=== PATIENT | female | born 1965 | race Caucasian/White ===

== ENCOUNTER 2019-05-06 11:51 | Inpatient (IN) | payer OTHER ==
[2019-05-06 13:03] LABS: ADD MAN DIFF? NO
[2019-05-06 13:04] LABS: BASOPHIL # 0.1 10^3/ul (0.0-0.1); BASOPHILS % 0.4 % (0.0-2.0); EOSINOPHILS # 0.3 10^3/ul (0.0-0.5); EOSINOPHILS % 2.2 % (0.0-7.0); HEMATOCRIT 33.3 % (37.0-47.0); HEMOGLOBIN 11.2 g/dl (12.0-16.0); LYMPHOCYTES # 1.7 10^3/ul (0.8-2.9); LYMPHOCYTES % 11.3 % (15.0-51.0); MEAN CORPUSCULAR HEMOGLOBIN 27.9 pg (29.0-33.0); MEAN CORPUSCULAR HGB CONC 33.6 g/dl (32.0-37.0); MEAN CORPUSCULAR VOLUME 82.8 fl (82.0-101.0); MEAN PLATELET VOLUME 10.2 fl (7.4-10.4); MONOCYTE # 0.6 10^3/ul (0.3-0.9); MONOCYTES % 3.9 % (0.0-11.0); NEUTROPHIL # 12.1 10^3/ul (1.6-7.5); NEUTROPHILS % 81.8 % (39.0-77.0); PLATELET COUNT 260 10^3/UL (140-415); RED BLOOD COUNT 4.02 10^6/ul (4.20-5.40); RED CELL DISTRIBUTION WIDTH 13.9 % (11.5-14.5)
[2019-05-06 13:04] LABS: WHITE BLOOD COUNT 14.8 10^3/ul (4.8-10.8)
[2019-05-06 13:24] LABS: ADD UMIC YES; UR ASCORBIC ACID NEGATIVE (NEGATIVE); UR BACTERIA FEW /HPF (NONE SEEN); UR BILIRUBIN (Dip) NEGATIVE (NEGATIVE); UR BLOOD (Dip) 2+ mg/dL (NEGATIVE); UR CLARITY CLOUDY (CLEAR); UR COLOR YELLOW (YELLOW); UR GLUCOSE (Dip) 1+ mg/dL (NEGATIVE); UR KETONES (Dip) NEGATIVE (NEGATIVE); UR LEUKOCYTE ESTERASE (Dip) 2+ Leu/ul (NEGATIVE); UR NITRITE (Dip) NEGATIVE (NEGATIVE); UR RBC 15 /HPF (0-5); UR SPECIFIC GRAVITY (Dip) 1.009 (1.003-1.030); UR SQUAMOUS EPITHELIAL CELL MODERATE /HPF (FEW); UR TOTAL PROTEIN (Dip) 2+ mg/dl (NEGATIVE); UR UROBILINOGEN (Dip) NEGATIVE (NEGATIVE); UR WBC 9 /HPF (0-5)
[2019-05-06 13:27] LABS: ALANINE AMINOTRANSFERASE 12 IU/L (13-69); ALBUMIN 4.3 g/dl (3.3-4.9); ALKALINE PHOSPHATASE 114 IU/L (42-121); ANION GAP 19 (5-13); ASPARTATE AMINO TRANSFERASE 9 IU/L (15-46); BILIRUBIN,INDIRECT 0.4 mg/dl (0-1.1); BILIRUBIN,TOTAL 0.4 mg/dl (0.2-1.3); BLOOD UREA NITROGEN 71 mg/dl (7-20); CALCIUM 7.4 mg/dl (8.4-10.2); CARBON DIOXIDE 21 mmol/L (21-31); CHLORIDE 102 mmol/L (97-110); Estimated GFR 7 mL/min (>60); GLUCOSE 132 mg/dl (70-220); LIPASE 289 U/L (23-300); POTASSIUM 3.2 mmol/L (3.5-5.1); SODIUM 142 mmol/L (135-144); TOTAL PROTEIN 8.2 g/dl (6.1-8.1)
[2019-05-06] MEDS ORDERED: ONDANSETRON 4 MG INJ IV ×2 (15:00→18:00)
[2019-05-06] MEDS ORDERED: ACETAMINOPHEN 325 MG TAB PO ×2 (15:00→18:00)
[2019-05-06 15:28] LABS: HEMOGLOBIN A1C 6.6 % (0-5.9)
[2019-05-06] MEDS ORDERED: INSULIN ASPART [NOVOLOG] 3 ML PEN SC (17:55)
[2019-05-06] MEDS ORDERED: ACETAMINOPHEN 650 MG SUPP PR (18:00)
[2019-05-06] MEDS ORDERED: BISACODYL 10 MG SUPP PR (18:00)
[2019-05-06] MEDS ORDERED: NACL 0.9% 3 ML SYG IV (18:00)
[2019-05-06] MEDS ORDERED: HYDROCODONE/APAP (5/325) TAB PO (18:00)
[2019-05-06] MEDS ORDERED: morphine 2 MG INJ IV (18:00)
[2019-05-06] MEDS ORDERED: BISACODYL (EC) 5 MG TAB PO (18:00)
[2019-05-06] MEDS ORDERED: DOCUSATE SODIUM 100 MG CAP PO (18:00)
[2019-05-06 18:12] LABS: INR 0.89; PROTIME 12.1 Sec (11.9-14.9); PT RATIO 0.9
[2019-05-06] MEDS ORDERED: hydrALAzine 20 MG INJ IV (18:30)
[2019-05-06] MEDS ORDERED: DEXTROSE 50% 50 ML SYRINGE IV ×2 (19:30)
[2019-05-06] MEDS ORDERED: GLUCOSE GEL 15 GRAM TUBE BUCCAL (19:30)
[2019-05-06] MEDS ORDERED: GLUCAGON 1 MG INJ IM (19:30)
[2019-05-06] MEDS ORDERED: GLUCOSE GEL 15 GRAM TUBE PO ×2 (19:30)
[2019-05-06] MEDS: LABETALOL 100 MG TAB PO (20:19)
[2019-05-06] MEDS: FAMOTIDINE 20 MG TAB PO (20:19)
[2019-05-06] MEDS: ATORVASTATIN 10 MG TAB PO (20:19)
[2019-05-06] MEDS: SOD CHLORIDE 0.9% 1,000 ML IV (20:20)
[2019-05-06] MEDS: DOCUSATE SODIUM 100 MG CAP PO (20:23)
[2019-05-06] MEDS: INSULIN ASPART [NOVOLOG] 3 ML PEN SC (21:37)
[2019-05-07] MEDS: ACCU-CHEK XX (01:53)
[2019-05-07] MEDS: SOD CHLORIDE 0.9% 1,000 ML IV ×3 (03:42→14:22)
[2019-05-07 05:44] LABS: HAAIG REFLEX REFLEX FILED
[2019-05-07 05:50] LABS: ADD MAN DIFF? NO
[2019-05-07 05:57] LABS: WHITE BLOOD COUNT 14.7 10^3/ul (4.8-10.8)
[2019-05-07 05:57] LABS: BASOPHILS % 0.3 % (0.0-2.0); EOSINOPHILS # 0.4 10^3/ul (0.0-0.5); EOSINOPHILS % 2.5 % (0.0-7.0); HEMATOCRIT 30.5 % (37.0-47.0); HEMOGLOBIN 10.2 g/dl (12.0-16.0); LYMPHOCYTES # 2.2 10^3/ul (0.8-2.9); LYMPHOCYTES % 14.7 % (15.0-51.0); MEAN CORPUSCULAR HGB CONC 33.4 g/dl (32.0-37.0); MEAN CORPUSCULAR VOLUME 83.8 fl (82.0-101.0); MEAN PLATELET VOLUME 10.6 fl (7.4-10.4); MONOCYTE # 0.7 10^3/ul (0.3-0.9); NEUTROPHIL # 11.3 10^3/ul (1.6-7.5); PLATELET COUNT 235 10^3/UL (140-415); RED BLOOD COUNT 3.64 10^6/ul (4.20-5.40); RED CELL DISTRIBUTION WIDTH 13.9 % (11.5-14.5)
[2019-05-07 06:11] LABS: ALANINE AMINOTRANSFERASE 14 IU/L (13-69); ALBUMIN 3.8 g/dl (3.3-4.9); ALBUMIN/GLOBULIN RATIO 1.15; ALKALINE PHOSPHATASE 98 IU/L (42-121); ANION GAP 17 (5-13); ASPARTATE AMINO TRANSFERASE < 8 IU/L (15-46); BILIRUBIN,INDIRECT 0.4 mg/dl (0-1.1); BILIRUBIN,TOTAL 0.4 mg/dl (0.2-1.3); BLOOD UREA NITROGEN 72 mg/dl (7-20); CALCIUM 7.1 mg/dl (8.4-10.2); CARBON DIOXIDE 20 mmol/L (21-31); CHLORIDE 103 mmol/L (97-110); CREATININE 5.46 mg/dl (0.44-1.00); Estimated GFR 8 mL/min (>60); GLUCOSE 149 mg/dl (70-220); POTASSIUM 3.3 mmol/L (3.5-5.1); SODIUM 140 mmol/L (135-144); TOTAL PROTEIN 7.1 g/dl (6.1-8.1)
[2019-05-07 07:30] LABS: IRON 61 ug/dl (35-150)
[2019-05-07 07:40] LABS: % IRON SATURATION 23 % SAT (22-52); TOTAL IRON BINDING CAPACITY 265 ug/dl (241-421)
[2019-05-07 08:10] LABS: HEPATITIS B SURFACE ANTIGEN NEGATIVE (NEGATIVE)
[2019-05-07 08:18] LABS: HEMOGLOBIN A1C 6.5 % (0-5.9)
[2019-05-07 08:27] LABS: HEPATITIS B CORE ANTIBODY NEGATIVE (NEGATIVE); HEPATITIS C VIRAL ANTIBODY NEGATIVE (NEGATIVE)
[2019-05-07] MEDS: LABETALOL 100 MG TAB PO ×2 (08:31→20:43)
[2019-05-07] MEDS: MINOXIDIL 2.5 MG TAB PO (08:31)
[2019-05-07] MEDS: INSULIN ASPART [NOVOLOG] 3 ML PEN SC ×5 (08:33→21:00)
[2019-05-07] MEDS: DOCUSATE SODIUM 100 MG CAP PO (08:34)
[2019-05-07] MEDS: POTASSIUM CHLORIDE (SR) 20 MEQ TAB PO (14:19)
[2019-05-07] MEDS: MULTIVIT/CA CARB/B CMPLX/FA TAB PO (14:20)
[2019-05-07] MEDS: CEFTRIAXONE 1 GM/50 ML (PMX) 50 ML IVPB (14:20)
[2019-05-07 16:36] LABS: COMPLEMENT C3 95 mg/dl (88-165); COMPLEMENT C4 31 mg/dl (14-44)
[2019-05-07 17:07] LABS: HIV 1&2 ANTIBODY NEGATIVE (NEGATIVE)
[2019-05-07] MEDS: FAMOTIDINE 20 MG TAB PO (18:00)
[2019-05-07] MEDS: ATORVASTATIN 10 MG TAB PO (20:43)
[2019-05-07] MEDS: ENOXAPARIN 30 MG/0.3 ML SYG SC (20:45)
[2019-05-08] MEDS: ACCU-CHEK XX (02:40)
[2019-05-08 03:54] LABS: PROTEIN/CREAT RATIO 2.23 RATIO
[2019-05-08 05:08] LABS: ADD MAN DIFF? NO
[2019-05-08 05:11] LABS: BASOPHILS % 0.2 % (0.0-2.0); EOSINOPHILS # 0.3 10^3/ul (0.0-0.5); EOSINOPHILS % 2.2 % (0.0-7.0); HEMATOCRIT 28.9 % (37.0-47.0); HEMOGLOBIN 9.4 g/dl (12.0-16.0); LYMPHOCYTES % 15.5 % (15.0-51.0); MEAN CORPUSCULAR HEMOGLOBIN 27.6 pg (29.0-33.0); MEAN CORPUSCULAR HGB CONC 32.5 g/dl (32.0-37.0); MEAN CORPUSCULAR VOLUME 84.8 fl (82.0-101.0); MEAN PLATELET VOLUME 10.2 fl (7.4-10.4); MONOCYTE # 0.6 10^3/ul (0.3-0.9); MONOCYTES % 4.8 % (0.0-11.0); NEUTROPHIL # 9.9 10^3/ul (1.6-7.5); NEUTROPHILS % 76.8 % (39.0-77.0); PLATELET COUNT 228 10^3/UL (140-415); RED BLOOD COUNT 3.41 10^6/ul (4.20-5.40); RED CELL DISTRIBUTION WIDTH 13.7 % (11.5-14.5)
[2019-05-08 05:11] LABS: WHITE BLOOD COUNT 12.9 10^3/ul (4.8-10.8)
[2019-05-08 05:42] LABS: ANION GAP 15 (5-13); BLOOD UREA NITROGEN 77 mg/dl (7-20); CALCIUM 6.8 mg/dl (8.4-10.2); CARBON DIOXIDE 21 mmol/L (21-31); CHLORIDE 106 mmol/L (97-110); CREATININE 5.49 mg/dl (0.44-1.00); Estimated GFR 8 mL/min (>60); GLUCOSE 149 mg/dl (70-220); POTASSIUM 3.6 mmol/L (3.5-5.1); SODIUM 142 mmol/L (135-144)
[2019-05-08] MEDS: DOCUSATE SODIUM 100 MG CAP PO (08:36)
[2019-05-08] MEDS: MINOXIDIL 2.5 MG TAB PO (08:37)
[2019-05-08] MEDS: LABETALOL 100 MG TAB PO ×2 (08:37→20:49)
[2019-05-08] MEDS: MULTIVIT/CA CARB/B CMPLX/FA TAB PO (08:39)
[2019-05-08] MEDS: INSULIN ASPART [NOVOLOG] 3 ML PEN SC ×4 (08:41→20:51)
[2019-05-08] MEDS: SOD CHLORIDE 0.9% 1,000 ML IV (10:02)
[2019-05-08] MEDS: AMLODIPINE 10 MG TAB PO (14:43)
[2019-05-08] MEDS: CEFTRIAXONE 1 GM/50 ML (PMX) 50 ML IVPB (14:43)
[2019-05-08] MEDS: SOD CHLORIDE 0.45% 1,000 ML IV (14:43)
[2019-05-08] MEDS: FAMOTIDINE 20 MG TAB PO (17:39)
[2019-05-08] MEDS: CALCIUM ACETATE 667 MG CAP PO (17:39)
[2019-05-08 19:36] LABS: RAPID PLASMA REAGIN NONREACTIVE (NR)
[2019-05-08] MEDS: ATORVASTATIN 10 MG TAB PO (20:49)
[2019-05-08] MEDS: HEPARIN 5,000 UNIT/1 ML VIAL SC (20:51)
[2019-05-09] MEDS: ACCU-CHEK XX (02:11)
[2019-05-09 05:29] LABS: ADD MAN DIFF? NO
[2019-05-09 05:32] LABS: BASOPHILS % 0.3 % (0.0-2.0); EOSINOPHILS # 0.4 10^3/ul (0.0-0.5); EOSINOPHILS % 2.9 % (0.0-7.0); HEMATOCRIT 28.5 % (37.0-47.0); HEMOGLOBIN 9.6 g/dl (12.0-16.0); LYMPHOCYTES # 1.9 10^3/ul (0.8-2.9); LYMPHOCYTES % 15.3 % (15.0-51.0); MEAN CORPUSCULAR HEMOGLOBIN 28.2 pg (29.0-33.0); MEAN CORPUSCULAR HGB CONC 33.7 g/dl (32.0-37.0); MEAN CORPUSCULAR VOLUME 83.8 fl (82.0-101.0); MEAN PLATELET VOLUME 10.6 fl (7.4-10.4); MONOCYTE # 0.6 10^3/ul (0.3-0.9); MONOCYTES % 4.8 % (0.0-11.0); NEUTROPHIL # 9.2 10^3/ul (1.6-7.5); PLATELET COUNT 246 10^3/UL (140-415); RED CELL DISTRIBUTION WIDTH 13.6 % (11.5-14.5)
[2019-05-09 05:32] LABS: WHITE BLOOD COUNT 12.1 10^3/ul (4.8-10.8)
[2019-05-09 05:59] LABS: MAGNESIUM 2.4 mg/dl (1.7-2.5)
[2019-05-09 05:59] LABS: PHOSPHORUS 8.3 mg/dl (2.5-4.9)
[2019-05-09 06:01] LABS: ANION GAP 15 (5-13); BLOOD UREA NITROGEN 74 mg/dl (7-20); CALCIUM 7.2 mg/dl (8.4-10.2); CARBON DIOXIDE 20 mmol/L (21-31); CHLORIDE 105 mmol/L (97-110); CREATININE 5.84 mg/dl (0.44-1.00); Estimated GFR 8 mL/min (>60); GLUCOSE 151 mg/dl (70-220); SODIUM 140 mmol/L (135-144)
[2019-05-09] MEDS: AMLODIPINE 10 MG TAB PO (08:51)
[2019-05-09] MEDS: DOCUSATE SODIUM 100 MG CAP PO (08:51)
[2019-05-09] MEDS: LABETALOL 100 MG TAB PO (08:51)
[2019-05-09] MEDS: CALCIUM ACETATE 667 MG CAP PO ×3 (08:52→17:40)
[2019-05-09] MEDS: MULTIVIT/CA CARB/B CMPLX/FA TAB PO (08:52)
[2019-05-09] MEDS: INSULIN ASPART [NOVOLOG] 3 ML PEN SC ×4 (08:53→20:36)
[2019-05-09] MEDS: HEPARIN 5,000 UNIT/1 ML VIAL SC ×2 (08:54→20:41)
[2019-05-09] MEDS ORDERED: ENOXAPARIN 30 MG/0.3 ML SYG SC (09:00)
[2019-05-09] MEDS: POTASSIUM CHLORIDE (SR) 10 MEQ TAB PO (10:53)
[2019-05-09 11:07] LABS: PARATHYROID HORMONE INTACT 333.8 pg/ml (7.5-53.5)
[2019-05-09] MEDS: CALCITRIOL 0.25 MCG CAP PO (12:40)
[2019-05-09] MEDS: CEFTRIAXONE 1 GM/50 ML (PMX) 50 ML IVPB (13:38)
[2019-05-09 13:42] LABS: ANCA SCREEN NEGATIVE (NEGATIVE)
[2019-05-09] MEDS ORDERED: FUROSEMIDE 20 MG TAB PO (14:00)
[2019-05-09] MEDS: POTASSIUM CHLORIDE (SR) 20 MEQ TAB PO (14:17)
[2019-05-09] MEDS: FUROSEMIDE 20 MG TAB PO (14:17)
[2019-05-09 16:50] LABS: MYELOPEROXIDASE ANTIBODY <1.0 AI; PROTEINASE-3 ANTIBODY <1.0 AI
[2019-05-09] MEDS: FAMOTIDINE 20 MG TAB PO (17:40)
[2019-05-09 20:02] LABS: ANA SCREEN POSITIVE (NEGATIVE)
[2019-05-09] MEDS: ATORVASTATIN 10 MG TAB PO (20:38)
[2019-05-09 21:36] LABS: ANA PATTERN HOMOGENEOUS
[2019-05-10] MEDS: ACCU-CHEK XX (01:31)
[2019-05-10 05:00] LABS: ADD MAN DIFF? NO
[2019-05-10 05:04] LABS: BASOPHILS % 0.3 % (0.0-2.0); EOSINOPHILS # 0.3 10^3/ul (0.0-0.5); EOSINOPHILS % 2.6 % (0.0-7.0); HEMATOCRIT 27.9 % (37.0-47.0); HEMOGLOBIN 9.4 g/dl (12.0-16.0); LYMPHOCYTES # 2.2 10^3/ul (0.8-2.9); LYMPHOCYTES % 17.3 % (15.0-51.0); MEAN CORPUSCULAR HEMOGLOBIN 28.1 pg (29.0-33.0); MEAN CORPUSCULAR HGB CONC 33.7 g/dl (32.0-37.0); MEAN CORPUSCULAR VOLUME 83.3 fl (82.0-101.0); MEAN PLATELET VOLUME 10.6 fl (7.4-10.4); MONOCYTE # 0.7 10^3/ul (0.3-0.9); MONOCYTES % 5.2 % (0.0-11.0); NEUTROPHIL # 9.5 10^3/ul (1.6-7.5); NEUTROPHILS % 74.3 % (39.0-77.0); PLATELET COUNT 242 10^3/UL (140-415); RED BLOOD COUNT 3.35 10^6/ul (4.20-5.40); RED CELL DISTRIBUTION WIDTH 13.4 % (11.5-14.5)
[2019-05-10 05:04] LABS: WHITE BLOOD COUNT 12.8 10^3/ul (4.8-10.8)
[2019-05-10 05:28] LABS: ANION GAP 15 (5-13); BLOOD UREA NITROGEN 75 mg/dl (7-20); CALCIUM 7.5 mg/dl (8.4-10.2); CARBON DIOXIDE 22 mmol/L (21-31); CHLORIDE 104 mmol/L (97-110); CREATININE 5.47 mg/dl (0.44-1.00); Estimated GFR 8 mL/min (>60); GLUCOSE 123 mg/dl (70-220); SODIUM 141 mmol/L (135-144)
[2019-05-10 05:54] LABS: POTASSIUM 2.7 mmol/L (3.5-5.1)
[2019-05-10] MEDS: AMLODIPINE 10 MG TAB PO (08:36)
[2019-05-10] MEDS: CALCITRIOL 0.25 MCG CAP PO (08:37)
[2019-05-10] MEDS: MULTIVIT/CA CARB/B CMPLX/FA TAB PO (08:39)
[2019-05-10] MEDS: FUROSEMIDE 20 MG TAB PO (08:39)
[2019-05-10] MEDS: CALCIUM ACETATE 667 MG CAP PO ×3 (08:39→17:36)
[2019-05-10] MEDS: DOCUSATE SODIUM 100 MG CAP PO (08:41)
[2019-05-10] MEDS: INSULIN ASPART [NOVOLOG] 3 ML PEN SC ×3 (08:44→17:37)
[2019-05-10] MEDS: HEPARIN 5,000 UNIT/1 ML VIAL SC (08:45)
[2019-05-10] MEDS: CEFTRIAXONE 1 GM/50 ML (PMX) 50 ML IVPB (13:46)
[2019-05-10] MEDS: POTASSIUM CHLORIDE (SR) 20 MEQ TAB PO (13:47)
[2019-05-10 15:48] LABS: POTASSIUM 3.1 mmol/L (3.5-5.1)
[2019-05-10] MEDS ORDERED: POTASSIUM CHLORIDE (SR) 20 MEQ TAB PO (17:00)
[2019-05-10] MEDS: POTASSIUM CHLORIDE 20 MEQ POWDER FOR ORAL SOLN PO (17:36)
[2019-05-10] MEDS: FAMOTIDINE 20 MG TAB PO (17:37)
== END 2019-05-10 20:05 | disposition home or self-care (01) | DRG 292 ==
LOC: FTE 11:51 → MS1 14:49
PROVIDERS: Internal Medicine
DX: I13.0 Hypertensive heart and chronic kidney disease with heart failure and stage 1 through stage 4 chronic kidney disease, or unspecified chronic kidney disease (principal); N17.9 Acute kidney failure, unspecified; Z68.41 Body mass index [BMI] 40.0-44.9, adult; Q61.3 Polycystic kidney, unspecified; E87.2 Acidosis; N39.0 Urinary tract infection, site not specified; E88.81 Metabolic syndrome and other insulin resistance; E11.22 Type 2 diabetes mellitus with diabetic chronic kidney disease; E11.21 Type 2 diabetes mellitus with diabetic nephropathy; E66.01 Morbid (severe) obesity due to excess calories; N18.9 Chronic kidney disease, unspecified; D63.8 Anemia in other chronic diseases classified elsewhere; E78.5 Hyperlipidemia, unspecified; G47.30 Sleep apnea, unspecified; K43.9 Ventral hernia without obstruction or gangrene; E87.6 Hypokalemia; D64.9 Anemia, unspecified; K80.20 Calculus of gallbladder without cholecystitis without obstruction
CPT/HCPCS: 36415; 71045; 74176; 76775; 80048; 80053; 81001; 81003; 82570; 82962; 83036; 83540; 83690; 83735; 83970; 84100; 84132; 84443; 84703; 85025; 85610; 86021; 86038; 86160; 86592; 86703; 86704; 86709; 86803; 87086; 87340; 89190; 93005; 93306; 93970; 99285-25